=== PATIENT | male | born 1955 | race Two or more races ===

== ENCOUNTER → 2022-05-27 | Outpatient (CLI) | payer OTHER, MEDICAID ==
[2022-05-27 08:43] LABS: Hemoglobin 9.3 g/dL (13.5-17.5)
[2022-05-27 08:45] LABS: Hematocrit 30.1 % (41.0-53.0); Mean Corpuscular Hemoglobin 21.8 pg (28.0-32.0); Mean Corpuscular Hgb Conc. 30.9 g/dL (32.0-36.0); Mean Corpuscular Volume 70.6 fL (80.0-100.0); Red Blood Cells 4.26 10^6/uL (4.5-5.90); White Blood Cell 9.6 10^3/uL (4.4-10.8)
[2022-05-27 08:48] LABS: Red Cell Distribution Width 20.9 % (11.8-14.3)
[2022-05-27 08:50] LABS: Band Neutrophils % (manual) 0; Basophils % (manual) 0 (0.0-2.0); Blast Cells 0; Metamyelocytes % 0; Myelocytes % 0; Promyelocytes % 0; Reactive Lymphocytes 0
[2022-05-27 08:56] LABS: Urine Bacteria FEW /hpf (None Seen); Urine Blood Negative /uL (Negative); Urine Specific Gravity 1.014 (1.001-1.035); Urine WBC 65 /hpf (0 - 3); Urine WBC Clumps PRESENT /hpf (None Seen)
[2022-05-27 09:02] LABS: Calcium 9.1 mg/dL (8.5-10.1); Potassium 4.8 mmol/L (3.5-5.1)
[2022-05-27 09:09] LABS: BUN/Creatinine Ratio 29.4 (10.0-20.0); Bilirubin, Total 0.5 mg/dL (0.2-1.0); Total Protein 8.4 g/dL (6.4-8.2)
[2022-05-27 09:33] LABS: Eosinophils % (manual) 15 (0-7); Lymphocytes % (manual) 13 (10.0-50.0); Monocytes % (manual) 5 (0-12)
[2022-05-27 10:24] LABS: Micro Albumin 15.3 mg/L (0-30.0)
== END | disposition home or self-care (01) ==
LOC: LAB 07:44
PROVIDERS: ATTEND Internal Medicine
DX: I12.9 Hypertensive chronic kidney disease with stage 1 through stage 4 chronic kidney disease, or unspecified chronic kidney disease (principal); E11.22 Type 2 diabetes mellitus with diabetic chronic kidney disease; N18.2 Chronic kidney disease, stage 2 (mild)
CPT/HCPCS: 36415; 80053; 80061; 81001; 82043; 82570; 83036; 84439; 84443; 85007; 85027

== ENCOUNTER → 2022-07-02 | Outpatient (CLI) | payer OTHER, MEDICAID | END | disposition home or self-care (01) | LOC: LAB 08:04 | PROVIDERS: ATTEND Internal Medicine | DX: D50.9 Iron deficiency anemia, unspecified (principal) | CPT/HCPCS: 82728; 83540 ==

== ENCOUNTER → 2022-11-18 | Outpatient (CLI) | payer MEDICARE, MEDICAID | END | disposition home or self-care (01) | LOC: LAB 08:56 | PROVIDERS: ATTEND Urology | DX: N40.1 Benign prostatic hyperplasia with lower urinary tract symptoms (principal) | CPT/HCPCS: 84153 ==

== ENCOUNTER → 2022-12-15 | Outpatient (CLI) | payer MEDICARE, MEDICAID ==
[2022-12-15 15:48] LABS: White Blood Cell 9.5 10^3/uL (4.4-10.8)
[2022-12-15 15:50] LABS: Hematocrit 30.9 % (41.0-53.0); Hemoglobin 9.8 g/dL (13.5-17.5); Mean Corpuscular Hemoglobin 23.7 pg (28.0-32.0); Mean Corpuscular Hgb Conc. 31.6 g/dL (32.0-36.0); Red Blood Cells 4.11 10^6/uL (4.5-5.90)
[2022-12-15 15:51] LABS: Red Cell Distribution Width 20.3 % (11.8-14.3)
[2022-12-15 15:52] LABS: Band Neutrophils % (manual) 0; Basophils % (manual) 0 (0.0-2.0); Blast Cells 0; Metamyelocytes % 0; Myelocytes % 0; Promyelocytes % 0; Reactive Lymphocytes 0
[2022-12-15 16:16] LABS: Chloride 110 mmol/L (98-107); Potassium 4.6 mmol/L (3.5-5.1); Sodium 143 mmol/L (136-145)
[2022-12-15 16:17] LABS: Anion Gap 8 (5-15); Carbon Dioxide 25 mmol/L (20-30)
[2022-12-15 16:18] LABS: Calcium 9.3 mg/dL (8.7-10.4)
[2022-12-15 16:22] LABS: BUN/Creatinine Ratio 22.7 (10.0-20.0); Blood Urea Nitrogen 27 mg/dL (9-23); Glucose 114 mg/dL (74-106)
[2022-12-15 17:07] LABS: Anisocytosis Slight; Eosinophils % (manual) 14 (0-7); Hypochromia Moderate; Lymphocytes % (manual) 20 (10.0-50.0); Monocytes % (manual) 9 (0-12); Platelet Estimate Adequate
== END | disposition home or self-care (01) ==
LOC: LAB 15:34
PROVIDERS: ATTEND Internal Medicine
DX: Z12.5 Encounter for screening for malignant neoplasm of prostate (principal); I12.9 Hypertensive chronic kidney disease with stage 1 through stage 4 chronic kidney disease, or unspecified chronic kidney disease; E11.22 Type 2 diabetes mellitus with diabetic chronic kidney disease; N18.2 Chronic kidney disease, stage 2 (mild); D50.9 Iron deficiency anemia, unspecified
CPT/HCPCS: 36415; 80048; 84153; 85007; 85027; G0103

== ENCOUNTER → 2023-01-03 | Outpatient (CLI) | payer MEDICARE, MEDICAID | END | disposition home or self-care (01) | LOC: LAB 10:37 | PROVIDERS: ATTEND Urology | DX: N40.0 Benign prostatic hyperplasia without lower urinary tract symptoms (principal); R35.1 Nocturia; R31.9 Hematuria, unspecified | CPT/HCPCS: 84153 ==

== ENCOUNTER → 2023-02-02 | Outpatient (CLI) | payer MEDICARE, MEDICAID ==
[~2023-02-02] MED LIST: AMLO1TAB22 PO; CARV3.1240 PO; ENAL1TAB48 PO; LIDOCAINE VISCOUS 2% 15ML UD ONE; METF-370 PO; METH5TAB2 PO; OMEP20TA PO
[2023-02-02 15:21] LABS: Albumin 4.2 g/dL (3.2-4.8); Bilirubin, Direct 0.2 mg/dL (<0.3); Bilirubin, Total 0.4 mg/dL (0.2-1.0); Total Protein 8.2 g/dL (5.7-8.2)
== END | disposition home or self-care (01) ==
LOC: LAB 14:13
PROVIDERS: ATTEND Urology
DX: N28.89 Other specified disorders of kidney and ureter (principal)
CPT/HCPCS: 36415; 80076; 82565; 84520

== ENCOUNTER → 2023-02-03 | Day surgery (SDC) | payer MEDICARE, MEDICAID ==
[2023-02-02 14:50] LABS: Basophils # (auto) 0.1 10 ^3/uL (0-0.2); Nucleated Red Blood Cells % 0.1 %; Urine Bacteria NONE SEEN /hpf (None Seen); Urine Blood 2+ /uL (Negative); Urine Clarity Clear (Clear); Urine Color Colorless (Yellow); Urine Protein, UAD Negative (Negative); Urine Specific Gravity 1.014 (1.001-1.035); Urine Urobilinogen Normal (Negative); Urine WBC 14 /hpf (0 - 3); Urine pH 5.5 (5.0-8.0)
[2023-02-02 14:52] LABS: Basophils % (auto) 1.5 % (0.0-2.0); Eosinophils # (auto) 1.2 10 ^3/uL (0-0.8); Eosinophils % (auto) 11.8 % (0.0-7.0); Hematocrit 34.3 % (41.0-53.0); Lymphocytes # (auto) 1.9 10 ^3/uL (0.4-5.4); Lymphocytes % (auto) 18.9 % (10.0-50.0); Mean Corpuscular Hemoglobin 25.6 pg (28.0-32.0); Mean Corpuscular Hgb Conc. 32.1 g/dL (32.0-36.0); Mean Corpuscular Volume 79.8 fL (80.0-100.0); Monocytes # (auto) 0.7 10 ^3/uL (0-1.3); Monocytes % (auto) 7.5 % (0.0-12.0); Neutrophils # (auto) 5.9 10 ^3/uL (1.6-8.6); Neutrophils % (auto) 60.3 % (37.0-80.0); White Blood Cell 9.8 10^3/uL (4.4-10.8)
[2023-02-02 14:56] LABS: Red Cell Distribution Width 21.6 % (11.8-14.3)
[2023-02-02 15:04] LABS: INR 1.09 (0.9-1.15); Partial Thromboplastin Time 31.3 SEC (24.5-34.5); Prothrombin Time 11.4 sec (9.3-11.8)
[2023-02-02 15:22] LABS: Alanine Aminotransferase 20 U/L (7-40); Albumin 4.2 g/dL (3.2-4.8); Alkaline Phosphatase 172 U/L (46-116); Anion Gap 8 (5-15); Aspartate Aminotransferase 18 U/L (13-40); Bilirubin, Total 0.4 mg/dL (0.2-1.0); Blood Urea Nitrogen 27 mg/dL (9-23); Calcium 9.7 mg/dL (8.5-10.1); Carbon Dioxide 24 mmol/L (20-30); Chloride 109 mmol/L (98-107); Glucose 88 mg/dL (74-106); Potassium 4.7 mmol/L (3.5-5.1); Sodium 141 mmol/L (136-145); Total Protein 8.2 g/dL (5.7-8.2)
[~2023-02-03] VITALS: Ht 175.3 cm; Wt 127.0 kg
[~2023-02-03] MED LIST changes: +HYDROmorphone HCL 2 MG/ML VL/or syr IV PRN; -LIDOCAINE VISCOUS 2% 15ML UD ONE; +METOCLOPRAMIDE HCL 5MG/ml INJ 2ml VIAL IV PRN; +MIDAZOLAM HCL 2MG/2ML 2ml VIAL (1mg/ml) ONE; +MORPHINE SULFATE INJ 2 MG/ml SYRG IV PRN; +ONDANSETRON HCL 4 MG/2 ML VIAL ONE; +PROPOFOL 10 MG/ML 20 ML IV ONE; +fentaNYL CITRATE 100 MCG/2 ML VL ONE
[2023-02-03 14:24] VITALS: PULSE 72; RESP 14; TEMP 97.8; O2SAT 97
[2023-02-03 15:00] VITALS: BP 109/66; PULSE 77; RESP 15; O2SAT 99
== END | disposition home or self-care (01) ==
LOC: GI 09:41
PROVIDERS: ATTEND Internal Medicine Gastroenterology
DX: K92.1 Melena (principal); Q43.8 Other specified congenital malformations of intestine; K31.7 Polyp of stomach and duodenum; K29.50 Unspecified chronic gastritis without bleeding; K74.60 Unspecified cirrhosis of liver; E11.9 Type 2 diabetes mellitus without complications; I10 Essential (primary) hypertension; Z79.899 Other long term (current) drug therapy; Z98.890 Other specified postprocedural states; Z79.84 Long term (current) use of oral hypoglycemic drugs
CPT/HCPCS: 36415; 43239; 45378; 80053; 81001; 82962; 85025; 85610; 85730; J2250; J2405; J2704; J3010; J7030

== ENCOUNTER 2023-04-24 21:18 | Inpatient (IN) | payer MEDICARE, MEDICAID ==
[~2023-04-24] VITALS: Ht 175.3 cm; Wt 136.6 kg
[~2023-04-24 21:18] MED LIST changes: -HYDROmorphone HCL 2 MG/ML VL/or syr IV PRN; -METOCLOPRAMIDE HCL 5MG/ml INJ 2ml VIAL IV PRN; -MIDAZOLAM HCL 2MG/2ML 2ml VIAL (1mg/ml) ONE; -MORPHINE SULFATE INJ 2 MG/ml SYRG IV PRN; -ONDANSETRON HCL 4 MG/2 ML VIAL ONE; -PROPOFOL 10 MG/ML 20 ML IV ONE; -fentaNYL CITRATE 100 MCG/2 ML VL ONE
[2023-04-24 23:11] LABS: Basophils # (auto) 0.1 10 ^3/uL (0-0.2); Basophils % (auto) 0.7 % (0.0-2.0); Eosinophils # (auto) 0.3 10 ^3/uL (0-0.8); Eosinophils % (auto) 2.2 % (0.0-7.0); Hemoglobin 11.3 g/dL (13.5-17.5); Lymphocytes # (auto) 0.9 10 ^3/uL (0.4-5.4); Mean Corpuscular Hemoglobin 25.5 pg (28.0-32.0); Mean Corpuscular Hgb Conc. 30.5 g/dL (32.0-36.0); Mean Corpuscular Volume 83.7 fL (80.0-100.0); Monocytes # (auto) 0.8 10 ^3/uL (0-1.3); Monocytes % (auto) 6.5 % (0.0-12.0); Neutrophils # (auto) 10.3 10 ^3/uL (1.6-8.6); Neutrophils % (auto) 83.6 % (37.0-80.0); Nucleated Red Blood Cells % 0.1 %; Red Blood Cells 4.42 10^6/uL (4.5-5.90); Red Cell Distribution Width 16.5 % (11.8-14.3); White Blood Cell 12.3 10^3/uL (4.4-10.8)
[2023-04-24 23:17] LABS: Chloride 110 mmol/L (98-107); Potassium 4.7 mmol/L (3.5-5.1); Sodium 139 mmol/L (136-145)
[2023-04-24 23:18] LABS: Anion Gap 10 (5-15); Carbon Dioxide 19 mmol/L (20-30)
[2023-04-24 23:23] LABS: BUN/Creatinine Ratio 14.8 (10.0-20.0); Blood Urea Nitrogen 21 mg/dL (9-23); Glucose 159 mg/dL (74-106)
[2023-04-25 00:33] LABS: Urine Bacteria FEW /hpf (None Seen); Urine Blood 2+ /uL (Negative); Urine Clarity HAZY (Clear); Urine Color Yellow (Yellow); Urine Protein, UAD TRACE (Negative); Urine Specific Gravity 1.015 (1.001-1.035); Urine Urobilinogen Normal (Negative); Urine WBC 354 /hpf (0 - 3); Urine pH 6.5 (5.0-8.0)
[2023-04-25] MEDS: MORPHINE SULFATE 4 MG/ML SYR/VIAL IM ONE (01:17)
[2023-04-25] MEDS: ONDANSETRON ODT 4 MG TAB PO ONE (01:17)
[2023-04-25 02:20] VITALS: PULSE 98; RESP 16; O2SAT 95
[2023-04-25] MEDS: cefTRIAXone SOD 1,000 MG VL IM ONE (02:43)
[2023-04-25] MEDS: LIDOCAINE 1% HCL (LOCAL ANESTH.) INJ 20ML MDV ONE (02:43)
[2023-04-25] MEDS: CIPROFLOXACIN 400MG/200ML 200 ML IV ONE (03:10)
[2023-04-25] MEDS ORDERED: HYDROcodone-ACET 5/325MG TAB PO PRN (05:30)
[2023-04-25] MEDS ORDERED: TEMAZEPAM 15 MG CAP PO PRN ×2 (05:30→05:45)
[2023-04-25] MEDS ORDERED: DEXTROSE (50%) 50ML SYRG IV PRN ×2 (05:30→05:45)
[2023-04-25] MEDS ORDERED: ACETAMINOPHEN 325 MG TAB PO PRN ×2 (05:30→05:45)
[2023-04-25] MEDS ORDERED: ONDANSETRON HCL 4 MG/2 ML VIAL IV PRN ×2 (05:30→05:45)
[2023-04-25] MEDS ORDERED: ACCU-CHEK COMFORT CURVE STRIP VI SCH (07:00)
[2023-04-25] MEDS ORDERED: InsuLIN REG 1unit/0.01ml Soln (100units/ml) SC SCH (07:00)
[2023-04-25] MEDS: ACCU-CHEK COMFORT CURVE STRIP VI SCH (07:25)
[2023-04-25] MEDS: InsuLIN REG 1unit/0.01ml Soln (100units/ml) SC SCH (07:26)
[2023-04-25 07:36] VITALS: PULSE 102; RESP 16; O2SAT 92
[2023-04-25] MEDS: TAMSULOSIN HYDROCHLORIDE 0.4 MG CAP PO ONE (09:08)
[2023-04-25] MEDS: amLODIPine BESYLATE 5 MG TAB PO SCH (09:54)
[2023-04-25] MEDS: ENALAPRIL MALEATE 10 MG TAB PO SCH (09:54)
[2023-04-25] MEDS: CARVEDILOL 3.125 MG TAB PO SCH (09:55)
[2023-04-25] MEDS ORDERED: ENALAPRIL MALEATE 10 MG TAB PO SCH (10:00)
[2023-04-25] MEDS ORDERED: amLODIPine BESYLATE 5 MG TAB PO SCH (10:00)
[2023-04-25] MEDS ORDERED: CARVEDILOL 3.125 MG TAB PO SCH (10:00)
[2023-04-25] MEDS: HYDROcodone-ACET 5/325MG TAB PO PRN (10:55)
[2023-04-25 13:30] LABS: Hepatitis B Surface Antigen Negative (Negative)
[2023-04-25 13:50] LABS: Hepatitis A Ab IgM Negative
[2023-04-25 13:51] LABS: Hepatitis B Core IgM Negative
[2023-04-25 14:00] LABS: Hepatitis C Antibody Positive (Negative)
[2023-04-25] MEDS: SODIUM CHLORIDE 0.9% 1,000 ML IV SCH (15:47)
[2023-04-25 19:00] VITALS: RESP 16; O2SAT 92
[2023-04-25 19:45] VITALS: PULSE 78; RESP 18; O2SAT 93
[2023-04-25] MEDS: TAMSULOSIN HYDROCHLORIDE 0.4 MG CAP PO SCH (20:52)
[2023-04-26] VITALS (7 sets, daily range): BP systolic 99–142; BP diastolic 39–73; PULSE 68–79; RESP 18–20; TEMP 97.9–99.4; O2SAT 92–100
[2023-04-26] MEDS: cefTRIAXone 1GM/50ML D5W 50 ML IV SCH (01:36)
[2023-04-26] MEDS ORDERED: cefTRIAXone 1GM/50ML D5W 50 ML IV SCH (02:00)
[2023-04-26] MEDS ORDERED: METH10T PO (02:55)
[2023-04-26 06:36] LABS: INR 1.19 (0.9-1.15); Partial Thromboplastin Time 33.8 SEC (24.5-34.5); Prothrombin Time 12.4 sec (9.3-11.8)
[2023-04-26 06:49] LABS: Basophils # (auto) 0.1 10 ^3/uL (0-0.2); Eosinophils # (auto) 0.4 10 ^3/uL (0-0.8)
[2023-04-26 06:51] LABS: Eosinophils % (auto) 2.5 % (0.0-7.0); Hematocrit 32.2 % (41.0-53.0); Hemoglobin 10.2 g/dL (13.5-17.5); Lymphocytes # (auto) 1.5 10 ^3/uL (0.4-5.4); Lymphocytes % (auto) 10.1 % (10.0-50.0); Mean Corpuscular Hemoglobin 25.8 pg (28.0-32.0); Mean Corpuscular Hgb Conc. 31.5 g/dL (32.0-36.0); Monocytes # (auto) 1.4 10 ^3/uL (0-1.3); Monocytes % (auto) 9.4 % (0.0-12.0); Neutrophils # (auto) 11.6 10 ^3/uL (1.6-8.6); Nucleated Red Blood Cells % 0.1 %; Red Blood Cells 3.93 10^6/uL (4.5-5.90); Red Cell Distribution Width 16.2 % (11.8-14.3); White Blood Cell 15.1 10^3/uL (4.4-10.8)
[2023-04-26 06:54] LABS: Alanine Aminotransferase 14 U/L (7-40); Albumin 3.7 g/dL (3.2-4.8); Alkaline Phosphatase 125 U/L (46-116); Anion Gap 8 (5-15); Aspartate Aminotransferase 22 U/L (13-40); BUN/Creatinine Ratio 23.6 (10.0-20.0); Bilirubin, Total 0.5 mg/dL (0.2-1.0); Calcium 8.8 mg/dL (8.5-10.1); Carbon Dioxide 24 mmol/L (20-30); Chloride 109 mmol/L (98-107); Glucose 110 mg/dL (74-106); Potassium 4.1 mmol/L (3.5-5.1); Sodium 141 mmol/L (136-145); Total Protein 7.3 g/dL (5.7-8.2)
[2023-04-26 06:57] LABS: Blood Urea Nitrogen 38 mg/dL (9-23)
[2023-04-26 08:06] LABS: PSA Free 0.08 ng/mL; Prostate Specific Antigen 0.5 ng/mL (0.0-4.0)
[2023-04-26] MEDS ORDERED: amLODIPine BESYLATE 5 MG TAB PO SCH (10:00)
[2023-04-27 05:00] VITALS: BP 123/72; PULSE 80; RESP 19; TEMP 98.3; O2SAT 92
[2023-04-27 06:09] LABS: Basophils # (auto) 0.1 10 ^3/uL (0-0.2); Hemoglobin 9.5 g/dL (13.5-17.5); Lymphocytes # (auto) 1.5 10 ^3/uL (0.4-5.4); Monocytes # (auto) 1.1 10 ^3/uL (0-1.3); Neutrophils # (auto) 5.9 10 ^3/uL (1.6-8.6); Red Cell Distribution Width 16.2 % (11.8-14.3)
[2023-04-27 06:10] LABS: Basophils % (auto) 1.3 % (0.0-2.0); Eosinophils # (auto) 1.2 10 ^3/uL (0-0.8); Eosinophils % (auto) 11.9 % (0.0-7.0); Hematocrit 30.7 % (41.0-53.0); Lymphocytes % (auto) 14.9 % (10.0-50.0); Mean Corpuscular Hemoglobin 25.7 pg (28.0-32.0); Mean Corpuscular Hgb Conc. 31.1 g/dL (32.0-36.0); Mean Corpuscular Volume 82.5 fL (80.0-100.0); Neutrophils % (auto) 60.9 % (37.0-80.0); Red Blood Cells 3.72 10^6/uL (4.5-5.90); White Blood Cell 9.8 10^3/uL (4.4-10.8)
[2023-04-27 06:12] LABS: Chloride 108 mmol/L (98-107); Potassium 4.1 mmol/L (3.5-5.1); Sodium 138 mmol/L (136-145)
[2023-04-27 06:13] LABS: Anion Gap 7 (5-15); Calcium 8.6 mg/dL (8.5-10.1); Carbon Dioxide 23 mmol/L (20-30)
[2023-04-27 06:18] LABS: Blood Urea Nitrogen 33 mg/dL (9-23); Glucose 90 mg/dL (74-106)
[2023-04-27 07:00] LABS: BUN/Creatinine Ratio 24.3 (10.0-20.0)
[2023-04-27 09:11] VITALS: BP 135/75; PULSE 72; RESP 20; TEMP 97.9; O2SAT 91
[2023-04-27 12:35] VITALS: BP 128/59; PULSE 69; RESP 20; TEMP 98.2; O2SAT 91
[2023-04-27] MEDS: LIDOCAINE W/ EPINEPHRINE 1% 20ML VIAL ONE (14:37)
[2023-04-27] MEDS: NEOMYCIN-BACITRACIN-POLYM 15GM TOP OINT TOP ONE (14:37)
[2023-04-27] MEDS: BACITRACIN TOP OINT 1 UD PKG TOP ONE (14:37)
[2023-04-27] MEDS: SUCCINYLCHOLINE CHLORIDE 20 MG/ML 10ML VIAL IV ONE (15:09)
[2023-04-27] MEDS ORDERED: LIDOCAINE 2% JELLY 11ml (GLYDO) ONE (15:14)
[2023-04-27] MEDS ORDERED: fentaNYL CITRATE 100 MCG/2 ML VL ONE (15:26)
[2023-04-27] MEDS ORDERED: MIDAZOLAM HCL 2MG/2ML 2ml VIAL (1mg/ml) ONE (15:26)
[2023-04-27] MEDS ORDERED: ONDANSETRON HCL 4 MG/2 ML VIAL IV PRN (16:15)
[2023-04-27] MEDS ORDERED: HYDROmorphone HCL 2 MG/ML VL/or syr IV PRN (16:15)
[2023-04-27] MEDS ORDERED: PROPOFOL 10 MG/ML 20 ML IV ONE (16:25)
[2023-04-27] MEDS ORDERED: ONDANSETRON HCL 4 MG/2 ML VIAL ONE (16:29)
[2023-04-27] MEDS ORDERED: LIDOCAINE 2% (LOCAL ANESTH.) PF 5ml SDV ONE (16:30)
[2023-04-27] MEDS ORDERED: ROCURONIUM 10MG/ML 10ML VIAL IV ONE (16:31)
[2023-04-27] MEDS ORDERED: NEOSTIGMINE 1 MG/ML INJ (10mg/10ML VIAL) ONE (16:33)
[2023-04-27] MEDS ORDERED: GLYCOPYRROLATE 0.2 MG/ML 1ML VIAL ONE (16:33)
[2023-04-27 16:45] VITALS: PULSE 87; RESP 18
[2023-04-27 17:50] VITALS: BP 152/89; PULSE 79; RESP 18; TEMP 97.8; O2SAT 92
[2023-04-27 22:00] VITALS: BP 122/72; PULSE 88; RESP 18; TEMP 97.9; O2SAT 95
[2023-04-28 05:00] VITALS: BP_SYST 114; BP_SYST 136; BP_DIAS 70; BP_DIAS 79; PULSE 67; PULSE 86; RESP 18; RESP 21; TEMP 97.8; TEMP 98; O2SAT 90; O2SAT 97
[2023-04-28 06:35] LABS: Chloride 107 mmol/L (98-107); Potassium 4.3 mmol/L (3.5-5.1); Sodium 139 mmol/L (136-145)
[2023-04-28 06:36] LABS: Anion Gap 9 (5-15); Carbon Dioxide 23 mmol/L (20-30)
[2023-04-28 06:37] LABS: Calcium 8.6 mg/dL (8.5-10.1)
[2023-04-28 06:40] LABS: Basophils # (auto) 0.1 10 ^3/uL (0-0.2); Hemoglobin 9.6 g/dL (13.5-17.5); Neutrophils # (auto) 4.8 10 ^3/uL (1.6-8.6)
[2023-04-28 06:41] LABS: Glucose 85 mg/dL (74-106)
[2023-04-28 06:42] LABS: BUN/Creatinine Ratio 21.2 (10.0-20.0); Blood Urea Nitrogen 24 mg/dL (9-23)
[2023-04-28 06:47] LABS: Eosinophils % (auto) 12.5 % (0.0-7.0); Hematocrit 30.5 % (41.0-53.0); Lymphocytes # (auto) 1.2 10 ^3/uL (0.4-5.4); Lymphocytes % (auto) 15.2 % (10.0-50.0); Mean Corpuscular Hemoglobin 25.6 pg (28.0-32.0); Mean Corpuscular Hgb Conc. 31.6 g/dL (32.0-36.0); Monocytes % (auto) 12.3 % (0.0-12.0); Nucleated Red Blood Cells % 0.1 %; Red Blood Cells 3.77 10^6/uL (4.5-5.90); Red Cell Distribution Width 16.4 % (11.8-14.3); White Blood Cell 8.1 10^3/uL (4.4-10.8)
[2023-04-28 08:00] VITALS: BP 108/58; PULSE 72; RESP 22; TEMP 98.4; O2SAT 94
[2023-04-28 12:37] VITALS: BP 93/47; PULSE 77; RESP 20; TEMP 98.6; O2SAT 90
[2023-04-28] MEDS ORDERED: CEFD300C2 PO (13:19)
[2023-04-28 14:56] VITALS: BP 108/58; PULSE 72; RESP 22; TEMP 98.4; O2SAT 94
[2023-04-28 17:00] VITALS: BP 118/58; PULSE 69; RESP 20; TEMP 98.2; O2SAT 96
== END 2023-04-28 16:32 | disposition home or self-care (01) | DRG 871 ==
LOC: ER 21:18 → EDBD 21:18 → WEST WING 04-25 05:28 → ER 04-25 05:28 → OVERFLOW 04-25 05:28 → WEST WING 04-25 22:59
PROVIDERS: ADMIT Nurse Practitioner; ATTEND Internal Medicine
PROC: 0TJB8ZZ Inspection of Bladder, Via Natural or Artificial Opening Endoscopic (ICD-10-PCS; 2023-04-27)
PROC: 0VTTXZZ Resection of Prepuce, External Approach (ICD-10-PCS; principal; 2023-04-27 15:22)
DX: A41.9 Sepsis, unspecified organism (principal); N17.0 Acute kidney failure with tubular necrosis; N39.0 Urinary tract infection, site not specified; Z68.41 Body mass index [BMI] 40.0-44.9, adult; R32 Unspecified urinary incontinence; N47.1 Phimosis; E66.01 Morbid (severe) obesity due to excess calories; N28.89 Other specified disorders of kidney and ureter; I10 Essential (primary) hypertension; E11.9 Type 2 diabetes mellitus without complications; K42.9 Umbilical hernia without obstruction or gangrene; K74.60 Unspecified cirrhosis of liver; B19.20 Unspecified viral hepatitis C without hepatic coma; R31.29 Other microscopic hematuria; Z79.84 Long term (current) use of oral hypoglycemic drugs; Z79.899 Other long term (current) drug therapy; Z90.5 Acquired absence of kidney
CPT/HCPCS: 36415; 51702; 71045; 76775; 80048; 80053; 80074; 81001; 82962; 83036; 83880; 84154; 85025; 85610; 85730; 86850; 86900; 86901; 87086; 93005; 93306; 96365; 96372; G0378; J0330; J0696; J1815; J2001; J2250; J2405; J2704; Q0162

== ENCOUNTER 2024-11-09 11:22 | Inpatient (IN) | payer MEDICARE, MEDICAID ==
[~2024-11-09] VITALS: Ht 175.3 cm; Wt 113.5 kg
[~2024-11-09 11:22] MED LIST changes: +CEFD300C2 PO; +METH-1214 PO; -METH5TAB2 PO
--- NOTE | 2024-11-09 12:08 | ED.PDOC ---
History of Present Illness HPI Comments 69-year-old male presents to the ER in a wheelchair being pushed by family member and with prior medical history of CHF, renal cell carcinoma in the chief complaint of lower extremity swelling. The the PCP informed them to go to the ER due from the patient having bilateral lower extremity swelling which has been on and off for one week. Denies chills, fever, N/V/D, SOB, CP. No other associated symptoms, modifiers, recent injuries or sick contacts present at this time. Chief Complaint: Lower Extremity Time Seen by MD: 12:00 Reviewed Notes: Nurses Notes, Medications, Allergies Allergies: Coded Allergies: NO KNOWN ALLERGIES (Unverified , 02/02/23) Home Meds Active Scripts Cefdinir (Cefdinir) 300 Mg Cap, 1 CAP PO BID for 7 Days, #14 CAP Prov:SERGO ACUNA MD 04/28/23 Reported Medications Methadone Hcl (METHADONE HCL TABLET) 10 Mg Tb, 50 MG PO DAILY, TAB 04/26/23 Carvedilol (Carvedilol) 3.125 Mg Tab, 3.125 MG PO BID, TAB 02/02/23 Enalapril Maleate (Enalapril Maleate) 20 Mg Tab, 20 MG PO DAILY, TAB 02/02/23 Amlodipine Besylate (Amlodipine Besylate) 5 Mg Tab, 5 MG PO DAILY, TAB 02/02/23 Omeprazole (Gnp Omeprazole) 20 Mg Tab, 40 MG PO DAILY, TAB 02/02/23 Metformin Hydrochloride (Metformin Hcl) 500 Mg Tab, 500 MG PO BID, TAB 02/02/23 Information Source: Patient, Relative Mode of Arrival: Ambulatory Severity: Moderate Timing: Days Duration: Since onset, Days Prehospital treatment: None Past Medical History PAST MEDICAL HISTORY: CHF Past Medical History (Other): Renal cell carcinoma Surgical History: Denies all surgeries Family History Family History: Reviewed,noncontributory to illness, Unknown Social History Smoker: Non-Smoker Alcohol: Denies ETOH Use Drugs: Denies Drug Use Lives In: Home Constitutional: denies: chills, diaphoresis, fatigue, fever, malaise, sweats, weakness, others EENTM: denies: blurred vision, double vision, ear bleeding, ear discharge, ear drainage, ear pain, ear ringing, eye pain, eye redness, hearing loss, mouth pain, mouth swelling, nasal discharge, nose bleeding, nose congestion, nose pain, photophobia, tearing, throat pain, throat swelling, voice changes, others Respiratory: denies: cough, hemoptysis, orthopnea, SOB at rest, shortness of breath, SOB with excertion, stridor, wheezing, others Cardiovascular: reports: edema (Bilateral lower extremity swelling); denies: chest pain, dizzy spells, diaphoresis, Dyspnea on exertion, irregular heart beat, left arm pain, lightheadedness, palpitations, PND, syncope, others Gastrointestinal: denies: abdomen distended, abdominal pain, blood streaked bowels, constipated, diarrhea, dysphagia, difficulty swallowing, hematemesis, melena, nausea, poor appetite, poor fluid intake, rectal bleeding, rectal pain, vomiting, others Genitourinary: denies: burning, dysuria, flank pain, frequency, hematuria, incontinence, penile discharge, penile sore, pain, testicle pain, testicle swelling, urgency, others Neurological: denies: dizziness, fainting, headache, left sided numbness, left sided weakness, numbness, paresthesia, pre-existing deficit, right sided numbness, right sided weakness, seizure, speech problems, tingling, tremors, weakness, others Musculoskeletal: denies: back pain, gout, joint pain, joint swelling, muscle pain, muscle stiffness, neck pain, others Integumetry: denies: bruises, change in color, change in hair/nails, dryness, laceration, lesions, lumps, rash, wounds, others Allergic/Immunocompromised: denies: Difficulty Healing, Frequent Infections, Hives, Itching, others Hematologic/Lymphatic: denies: anemia, blood clots, easy bleeding, easy bruising, swollen glands, others Endocrine: denies: excessive hunger, excessive sweating, excessive thirst, excessive urination, flushing, intolerance to cold, intolerance to heat, unexplained weight gain, unexplained weight loss, others Psychiatric: denies: anxiety, bipolar disorder, depression, hopeless, panic d isorder, schizophrenia, sleepless, suicidal, others All Other Systems: Reviewed and Negative Physical Exam Exam Comments Patient appears uncomfortable General Appearance: No Apparent Distress, Normal HEENT: Normal ENT Inspection, Pharynx Normal, TMs Normal Neck: Full Range of Motion, Non-Tender, Normal, Normal Inspection Respiratory: Chest Non-Tender, Lungs Clear, No Accessory Muscle Use, No Respiratory Distress, Normal Breath Sounds Cardiovascular: No Edema, No JVD, No Murmur, No Gallop, Normal Peripheral Pulses, Regular Rate/Rhythm Breast Exam: Deferred Gastrointestinal: No Organomegaly, Non Tender, No Pulsatile Mass, Normal Bowel Sounds, Soft Genitalia: Deferred Pelvic: Deferred Rectal: Deferred Extremities: No calf tenderness, Normal capillary refill, Normal inspection, Normal range of motion, Non-tender, No pedal edema Musculoskeletal : Apperance: Normal Neurologic: Alert, disease control inspector II-XII nml as Tested, No Motor Deficits, Normal Affect, Normal Mood, No Sensory Deficits Cerebellar Function: Normal Reflexes: Normal Skin: Dry, Normal Color, Warm Lymphatic: No Adenopathy Was a procedure done? Was a procedure done?: No Differential Dx Considerations may include: ACS, CVA, CHF, viral syndrome X-Ray, Labs, Meds, VS Vital Signs Date Time Temp Pulse Resp B/P (MAP) Pulse Ox O2 Delivery O2 Flow Rate FiO2 11/09/24 11:24 98.2 89 18 149/75 100 98.2 Lab Test 11/09/24 15:29 11/09/24 13:32 11/09/24 12:34 Range/Units Troponin I High Sensitivity 3 L 3 L < 3 L </=54 ng/L White Blood Count 8.4 4.4-10.8 10^3/uL Red Blood Count 3.96 L 4.5-5.90 10^6/uL Hemoglobin 10.5 L 13.5-17.5 g/dL Hematocrit 33.7 L 41.0-53.0 % Mean Corpuscular Volume 85.1 80.0-100.0 fL Mean Corpuscular Hemoglobin 26.6 L 28.0-32.0 pg Mean Corpuscular Hemoglobin Concent 31.3 L 32.0-36.0 g/dL Red Cell Distribution Width 18.5 H 11.8-14.3 % Platelet Count 261 140-450 10^3/uL Mean Platelet Volume 8.6 6.9-10.8 fL Neutrophils (%) (Auto) 65.4 37.0-80.0 % Lymphocytes (%) (Auto) 14.1 10.0-50.0 % Monocytes (%) (Auto) 9.1 0.0-12.0 % Eosinophils (%) (Auto) 10.4 H 0.0-7.0 % Basophils (%) (Auto) 1.0 0.0-2.0 % Neutrophils # (Auto) 5.5 1.6-8.6 10 ^3/uL Lymphocytes # (Auto) 1.2 0.4-5.4 10 ^3/uL Monocytes # (Auto) 0.8 0-1.3 10 ^3/uL Eosinophils # (Auto) 0.9 H 0-0.8 10 ^3/uL Basophils # (Auto) 0.1 0-0.2 10 ^3/uL Nucleated Red Blood Cells 0.1 % Sodium Level 143 136-145 mmol/L Potassium Level 5.1 3.5-5.1 mmol/L Chloride Level 113 H 98-107 mmol/L Carbon Dioxide Level 21 20-31 mmol/L Anion Gap 9 5-15 Blood Urea Nitrogen 26 H 9-23 mg/dL Creatinine 1.25 0.700-1.30 mg/dL Glomerular Filtration Rate Calc 63 >90 mL/min BUN/Creatinine Ratio 20.8 H 10.0-20.0 Serum Glucose 134 H 74-106 mg/dL Calcium Level 8.8 8.7-10.4 mg/dL B-Type Natriuretic Peptide 35.15 0-100 pg/mL Time of 1ST Reevaluation: 12:30 Reevaluation 1ST: Unchanged Patient Education/Counseling: Diagnosis, Treatment, Prognosis Family Education/Counseling: Diagnosis, Treatment, Prognosis SEPSIS Sepsis Screen Date sepsis recognized/suspect: Nov 09, 2024 Time Sepsis recognized/suspect: 1126 Recent Procedure: No On Antibiotic Therapy: No Respiratory Rate >20: No Heart Rate >90: No Temp<36 C (96.8 F) or >38.3 C: No SBP <90 or MAP <65 mmHG: No New Acute Mental Status Change: No Is the patient on CPAP, BIPAP,: No Physician Orders Chest Portable (11/09/24 12:18) Electrocardigram (11/09/24 12:18) Electrocardigram (11/09/24 13:18) Electrocardigram (11/09/24 15:18) Vital Signs Date Time Temp Pulse Resp B/P (MAP) Pulse Ox O2 Delivery O2 Flow Rate FiO2 11/09/24 11:24 98.2 89 18 149/75 100 98.2 Laboratory Tests Test 11/09/24 12:34 White Blood Count 8.4 10^3/uL (4.4-10.8) Departure 1 Departure Time of Disposition: 16:36 (Patient presented with shortness of breath that was concerning for possible STEMI, ACS, PE, Pneumonia, Muscle Strain, COPD, Dissection, Acute on Chronic systolic and Diastolic dysfunction. Data: 1. I ordered and reviewed the result of at least 3 labs including a CBC, BMP, and Troponin. 2. I independently interpreted the following tests: EKG which shows sinus arrhthmia and Chest X-ray which shows cardiomegaly.Risk:This patient has a high risk of morbidity due to further diagnostic testing or treatment and may suffer from an acute cardiac or respiratory disorder but is most consitent with an acute chf exacerbation. Patient should be admitted for further workup and possible expert consultation. ) Impression: Primary Impression: Acute on chronic systolic heart failure Additional Impression: Lower extremity edema Disposition: ADMITTED INPATIENT Admit to: Med Surg Condition: Serious Critical Care Note Critical Care Time?: Yes Critical care comment: Concern for heart failure Authorized and Performed by: Ha Sanchez MD Total critical care time: Approximately 38 minutes Due to a high probability of clinically significant, life threatening deterioration, the patient required my highest level of preparedness to intervene emergently and I personally spent this critical care time directly and personally managing the patient. This critical care time included obtaining a history; examining the patient; pulse oximetry; ordering and review of studies; arranging urgent treatment with development of a management plan; evaluation of patient's response to treatment; frequent reassessment; and, discussions with other providers. This critical care time was performed to assess and manage the high probability of imminent, life-threatening deterioration that could result in multi-organ failure. It was exclusive of separately billable procedures and treating other patients and teaching time. Please see my other sections and the rest of the note for further information on patient assessment and treatment. Stability Stability form required: No I personally scribed for HA SANCHEZ MD ([email or web address]) on 11/09/24 at 12:08. El ectronically submitted by Bharathi Calle ([email or web address]). HA SANCHEZ MD Nov 09, 2024 12:08
--- NOTE | 2024-11-09 12:48 | DVH ---
XY CHEST PORTABLE, HISTORY: leg swelling COMPARISON: XY CHEST PORTABLE on DOS: 04/27/23, XY CHEST TWO VIEWS ROUTINE on DOS: 02/02/23 XY CHEST PORTABLE on DOS: 04/27/23, XY CHEST TWO VIEWS ROUTINE on DOS: 02/02/23 TECHNICAL DATA: 1 view of the chest was obtained. FINDINGS: Lines and tubes: None Cardiomediastinal silhouette: prominent Pulmonary vasculature: prominent Lung expansion: normal Lung airspace: Left basilar subsegmental atelectasis. Lung interstitium: normal Pleura: normal Pneumothorax: no Bones: Unremarkable Other: no IMPRESSION: Left basilar subsegmental atelectasis. Cardiomegaly with pulmonary vascular congestion.
[2024-11-09 12:53] LABS: Nucleated Red Blood Cells % 0.1 %
[2024-11-09 12:55] LABS: Hematocrit 33.7 % (41.0-53.0); Hemoglobin 10.5 g/dL (13.5-17.5); Mean Corpuscular Hemoglobin 26.6 pg (28.0-32.0); Mean Corpuscular Volume 85.1 fL (80.0-100.0)
[2024-11-09 13:01] LABS: Potassium 5.1 mmol/L (3.5-5.1); Sodium 143 mmol/L (136-145)
[2024-11-09 13:02] LABS: Anion Gap 9 (5-15); Calcium 8.8 mg/dL (8.7-10.4); Carbon Dioxide 21 mmol/L (20-31)
[2024-11-09 13:04] LABS: Chloride 113 mmol/L (98-107)
[2024-11-09 13:07] LABS: BUN/Creatinine Ratio 20.8 (10.0-20.0); Blood Urea Nitrogen 26 mg/dL (9-23); Glucose 134 mg/dL (74-106)
[2024-11-09] MEDS: FUROSEMIDE 40 MG/4 ML VIAL IV ONE (17:28)
[2024-11-09 17:29] VITALS: PULSE 67; RESP 18; O2SAT 97
[2024-11-09] MEDS ORDERED: MORPHINE SULFATE INJ 2 MG/ml SYRG IV PRN (22:45)
[2024-11-09] MEDS ORDERED: ACETAMINOPHEN 325 MG TAB PO PRN (22:45)
[2024-11-09] MEDS ORDERED: DOCUSATE SOD 100 MG CAP PO PRN (22:45)
[2024-11-09] MEDS ORDERED: ONDANSETRON HCL 4 MG/2 ML VIAL IV PRN (22:45)
[2024-11-09] MEDS ORDERED: NITROGLYCERIN 0.4 MG SL TAB SL PRN (22:45)
[2024-11-10] VITALS (8 sets, daily range): BP systolic 114–147; BP diastolic 69–88; PULSE 57–75; RESP 16–19; TEMP 97.4–98.7; O2SAT 95–97
[2024-11-10 07:59] LABS: Hematocrit 33.0 % (41.0-53.0); Hemoglobin 10.8 g/dL (13.5-17.5); Mean Corpuscular Hemoglobin 26.8 pg (28.0-32.0); Mean Corpuscular Volume 82.2 fL (80.0-100.0); Nucleated Red Blood Cells % 0.2 %
[2024-11-10 08:15] LABS: Alanine Aminotransferase 20 U/L (7-40); Albumin 4.1 g/dL (3.2-4.8); Anion Gap 10 (5-15); BUN/Creatinine Ratio 20.1 (10.0-20.0); Bilirubin, Total 0.3 mg/dL (0.2-1.0); Calcium 9.1 mg/dL (8.7-10.4); Carbon Dioxide 21 mmol/L (20-31); Potassium 5.0 mmol/L (3.5-5.1); Sodium 143 mmol/L (136-145)
[2024-11-10 08:17] LABS: Alkaline Phosphatase 199 U/L (46-116); Blood Urea Nitrogen 28 mg/dL (9-23); Chloride 112 mmol/L (98-107); Glucose 129 mg/dL (74-106); Total Protein 8.4 g/dL (5.7-8.2)
[2024-11-10] MEDS: FUROSEMIDE 40 MG/4 ML VIAL IV SCH (09:53)
--- NOTE | 2024-11-10 11:01 | DVHHPRES ---
History of Present Illness Resident Creating Document: RICK FRY History of Present Illness History of Present Illness (HPI): Jimbo Barakat Jr. is a 69-year-old male with a complex past medical history including congestive heart failure (CHF), renal cell carcinoma, type 2 diabetes mellitus, hypertension, and bilateral knee osteoarthritis, who presented to the emergency department in a wheelchair, accompanied by a family member, with the chief complaint of bilateral lower extremity swelling. The patient reported that the swelling had been intermittent over the past week and was significant enough that his primary care provider advised him to seek emergency care. He stated that the swelling worsens during the day and improves somewhat with elevation of the legs at night. He also reported associated shortness of breath, particularly noticeable during ambulation, although he denied experiencing shortness of breath at rest. The patient denied any other symptoms including chills, fever, nausea, vomiting, diarrhea, chest pain, or recent injuries. He also denied any sick contacts or recent illnesses. Past Medical History (PMH): Essential hypertension, chronic anemia normocytic. Renal cell cancer, HFpEF, moderate pulmonary hypertension, morbid obesity diabetes mellitus, hepatitis-C liver cirrhosis supraumbilical hernia, allergic rhinitis, atopy, Seasonal allergy. Past Surgical History (PSH): Hernia surgery 5 years ago, Phimosis, status post circumcision. Family history (FH): Diabetes mellitus in mother, Reviewed, noncontributory to illness, Unknown Social History: Non-smoker, denies alcohol use, denies drug use, lives at home. history of heavy alcohol abuse Stopped 2 years ago, Smoking /Vapin Pack years Recreational Drugs: Admits to heroin use in the past, stopped 30 years ago. Lives at home with daughter. PCP: Dr. Ennis Review of Systems Review of Systems CONSTITUTIONAL: Fever, night sweats, weight loss, Lymphadenopathy, ecchymoses, fatigue: Negative DERMATOLOGIC: Rash, New/growing/changing skin lesions: Negative HEENT: Vision change, eye pain, Rhinorrhea, sinus pain, epistaxis, dysphagia, odynophagia, globus sensation, Change in hearing, tinnitus, vertigo, otalgia, Dental problems, oral ulcers or lesions: : Negative ENDOCRINE: Weight change, heat or cold intolerance, tremor, insomnia, neck pain or swelling, Polyuria, polydipsia, polyphagia, Abnormal hair growth, change in nails: Negative CARDIOVASCULAR: Complains of bilateral pedal edema. Chest pain, palpitations, syncope, cyanosis, claudication, Orthopnea, paroxysmal nocturnal dyspnea: Negative PULMONARY: Shortness of breath, dyspnea with exertion, Cough, hemoptysis, wheezing, chest pain : Negative GI: Nausea, vomiting, diarrhea, melena, hematochezia, Change in appetite, abdominal pain, change in bowel habits or stools: Negative : Dysuria, frequency, urgency, Urinary incontinence, hematuria, foamy urine, nocturia, Change in libido, erectile dysfunction, Change in menses, dysmenorrhea, dyspaerunia, pelvic pain: : Negative MUSCULOSKELETAL: Joint swelling or pain, muscle pain, back pain: : Negative NEUROLOGIC: Headache, scotoma, Change in smell or taste, change in facial muscles, Muscle weakness, paresthesias, anesthesia, Ataxia, change in speech: Negative PSYCHIATRIC: Depression, anxiety, hallucinations, keanu, suicidal/homicidal t houghts, Binging, purging: Negative Allergies: Coded Allergies: NO KNOWN ALLERGIES (Unverified , 02/02/23) Medications Current Medications Medications Dose Ordered Sig/Nieves Route Start Time Stop Time Status Last Admin Dose Admin Acetaminophen 650 mg Q4HP PRN PO 11/09/24 22:45 Ondansetron HCl 4 mg Q4HP PRN IV 11/09/24 22:45 Docusate Sodium 100 mg BIDPRN PRN PO 11/09/24 22:45 Nitroglycerin 0.4 mg Q5MINP PRN SL 11/09/24 22:45 Morphine Sulfate 2 mg Q30M PRN IV 11/09/24 22:45 Exam Vital Signs Vital Signs Date Time Temp Pulse Resp B/P (MAP) Pulse Ox O2 Delivery O2 Flow Rate FiO2 11/09/24 21:51 98.8 80 20 134/68 (90) 95 98.8 11/09/24 18:39 Room Air* 0 21 Exam General Appearance: Alert, Oriented X3, Cooperative, No acute distress HEENT: Atraumatic, PERRLA, EOMI, Mucous membrane moist/pink Respiratory: Clear to auscultation, Normal air movement Cardiovascular: Regular rate, Normal S1, Normal S2, No murmurs, no chest wall tenderness Abdominal: Normal bowel sounds, Soft, No tenderness, No hepatospenomegaly, No masses Extremities: Bilateral nonpitting pedal edema, No clubbing, No cyanosis, Normal pulses, No tenderness/swelling Skin: No rashes, No breakdown, No significant lesion Neuro: Normal gait, Normal speech, Strength at 5/5 X4 ext, Normal tone, Sensation intact, Cranial nerves 3-12 NL, Reflexes 2+ Psych/Mental Status: Mental status NL, Mood NL Labs/Xrays Labs Test 11/09/24 15:29 11/09/24 12:34 Range/Units Troponin I High Sensitivity 3 L </=54 ng/L White Blood Count 8.4 4.4-10.8 10^3/uL Red Blood Count 3.96 L 4.5-5.90 10^6/uL Hemoglobin 10.5 L 13.5-17.5 g/dL Hematocrit 33.7 L 41.0-53.0 % Mean Corpuscular Volume 85.1 80.0-100.0 fL Mean Corpuscular Hemoglobin 26.6 L 28.0-32.0 pg Mean Corpuscular Hemoglobin Concent 31.3 L 32.0-36.0 g/dL Red Cell Distribution Width 18.5 H 11.8-14.3 % Platelet Count 261 140-450 10^3/uL Mean Platelet Volume 8.6 6.9-10.8 fL Neutrophils (%) (Auto) 65.4 37.0-80.0 % Lymphocytes (%) (Auto) 14.1 10.0-50.0 % Monocytes (%) (Auto) 9.1 0.0-12.0 % Eosinophils (%) (Auto) 10.4 H 0.0-7.0 % Basophils (%) (Auto) 1.0 0.0-2.0 % Neutrophils # (Auto) 5.5 1.6-8.6 10 ^3/uL Lymphocytes # (Auto) 1.2 0.4-5.4 10 ^3/uL Monocytes # (Auto) 0.8 0-1.3 10 ^3/uL Eosinophils # (Auto) 0.9 H 0-0.8 10 ^3/uL Basophils # (Auto) 0.1 0-0.2 10 ^3/uL Nucleated Red Blood Cells 0.1 % Sodium Level 143 136-145 mmol/L Potassium Level 5.1 3.5-5.1 mmol/L Chloride Level 113 H 98-107 mmol/L Carbon Dioxide Level 21 20-31 mmol/L Anion Gap 9 5-15 Blood Urea Nitrogen 26 H 9-23 mg/dL Creatinine 1.25 0.700-1.30 mg/dL Glomerular Filtration Rate Calc 63 >90 mL/min BUN/Creatinine Ratio 20.8 H 10.0-20.0 Serum Glucose 134 H 74-106 mg/dL Calcium Level 8.8 8.7-10.4 mg/dL B-Type Natriuretic Peptide 35.15 0-100 pg/mL SEPSIS Sepsis Screen Date sepsis recognized/suspect: Nov 09, 2024 Time Sepsis recognized/suspect: 1838 Recent Procedure: No On Antibiotic Therapy: No Respiratory Rate >20: No Heart Rate >90: No Temp<36 C (96.8 F) or >38.3 C: No SBP <90 or MAP <65 mmHG: No New Acute Mental Status Change: No Is the patient on CPAP, BIPAP,: No Physician Orders Admit (11/09/24 22:45) Allergies (11/09/24 22:45) Code Status (11/09/24 22:45) Acetaminophen Tablet (Tylenol Tablet) (11/09/24 22:45) Ondansetron Hcl (Zofran) (11/09/24 22:45) Docusate Sodium Capsule (Colace Capsule) (11/09/24 22:45) Fall Risk Precautions In Place QSHIFT (11/09/24 22:45) Complete Blood Count (11/10/24 04:00) Comprehensive Metabolic Panel (11/10/24 04:00) Cardiac Diet-2gna,Lofat,Lochol (11/10/24 Breakfast) Condition: Fair (11/09/24 22:45) Bedside Commode (11/09/24 22:45) Nitroglycerin Sublingual (Ntrostat Subli (11/09/24 22:45) Morphine Sulfate Injection (11/09/24 22:45) Stat Ekg For Chest Pain (11/09/24 22:45) Vital Signs Date Time Temp Pulse Resp B/P (MAP) Pulse Ox O2 Delivery O2 Flow Rate FiO2 11/09/24 21:51 98.8 80 20 134/68 (90) 95 98.8 Medications Medications Dose Ordered Sig/Nieves Route Start Time Stop Time Status Last Admin Dose Admin Furosemide 40 mg ONCE ONCE IV 11/09/24 16:00 11/09/24 16:09 DC 11/09/24 17:28 40 MG Assessment/Plan Assessment/Plan #bilateral leg swelling: Concerning for DVT, CHF, worsening of liver cirrhosis, venous insufficiency, myxedema, injury, cellulitis, extensive workup continue with U/S DVT, echo, BNP, CMP, INR/PT, TSH, and associated additional workup. #bilateral leg swelling secondary due to amlodipine/CCB: Is a diagnostic of exclusion once all above or negative. Compression DAV hose, change to different as of antihypertensive. #uncontrolled Essential HTN : Target blood pressure 140/90, close monitoring, salt restricted cardiac diet to continue, restart home medications. home medications include amlodipine, enalapril. Holding enalapril for now. #normocytic anemia, possible early iron deficiency anemia: occult blood, iron panel, ferritin, transfusion threshold no rashes noted no rales no other concerning features. #likely underlying CKD, baseline creatinine 1.2-1.3 #Left basilar subsegmental atelectasis: Cardiomegaly with pulmonary vascular congestion. Q 1 hour of incentive spirometry, out of bed, otherwise CXR normal, patient breathing in the room air. #Known prior heart failure with preserved ejection fraction: Last echo . Check for electrolytes, echo, EKG. #Moderate pulmonary hypertension: Previously noted in echo, repeat. #Previous history of renal cell carcinoma: Check renal ultrasound. #grade 2 obesity BMI of 37 #Prior diabetes mellitus: Check for HbA1c, not on insulin, target blood glucose in-hospital 140-180 #history of hepatitis-C last checked done 04/25/2023: Recheck hepatitis panel #Liver cirrhosis: Likely due to above, check for PT INR/ CMP close follow up. Check for hepatitis panel comprehensive. No active decompensation noted. #Supraumbilical hernia: Check for lactate ruled out incarceration. Status post Previous surgery. #Surgical history of Phimosis, status post circumcision. #Prior renal cell carcinoma: Follow up needed, collateral history, further follow up to check. #Prior history of malignancy, comes with higher total protein: Check for SPEP, if needed later at [facility] #Moderate dehydration: Intravascular fluid depletion: Noted by clinical examination, elevated BUN with BUN to creatinine ratio more than 20.IV fluid to continue, #Allergic rhinitis: Fluticasone propionate nasal: Eosinophilia likely due to the seasonal allergy. #History of recurrent UTI, prior microbiology unremarkable for resistant bacteria: Urinalysis to check #History of Osteoarthritis of bilateral knee: Likely age-related, stable, independent ADLs PUD prophylaxis: not needed DVT prophylaxis: brisk movement. Barriers to discharge: Medical diagnosis and management in progress. Patient toy otto with family. Independent for ADL. Likely discharge 24-48 hours. PCP:Dr. Ennis Case discussed with Dr. Rebollar. Code Status: Full Code. Complex patient care needed 33 minutes. Plan discussed with: Patient, Son My Orders Orders - RICK FRY RESIDENT Procedure Category Date Status Time Admit ADMIT 11/09/24 Transmitted 22:45 Allergies KRISTINA 11/09/24 In Process 22:45 Code Status CODE 11/09/24 Transmitted 22:45 Acetaminophen Tablet PHA 11/09/24 In Process (Tylenol Tablet) 22:45 Ondansetron Hcl PHA 11/09/24 In Process (Zofran) 22:45 Docusate Sodium PHA 11/09/24 In Process Capsule (Colace 22:45 Fall Risk Precautions KRISTINA 11/09/[address] 22:45 Complete Blood Count LAB 11/10/24 Logged 04:00 Comprehensive LAB 11/10/24 Logged Metabolic Panel 04:00 Cardiac DIET 11/10/24 Transmitted Diet-2gna,Lofat,Lochol Breakfast Condition: Fair KRISTINA 11/09/24 In Process 22:45 Bedside Commode KRISTINA 11/09/24 In Process 22:45 Nitroglycerin PHA 11/09/24 In Process Sublingual (Ntrostat 22:45 Morphine Sulfate PHA 11/09/24 In Process Injection 22:45 Stat Ekg For Chest KRISTINA 11/09/24 In Process Pain 22:45 Date of Service: Nov 09, 2024 Billing Provider: MOISES REBOLLAR MD Common Visit Codes: 61600-AKYTSYK INP/OBS CARE (HIGH) Secondary Visit Codes: 69602-YNYAQEXG CARE PLAN 30 MINUTES RICK FRY RESIDENT Nov 10, 2024 02:47 IESHA LAGUNA RESIDENT Nov 10, 2024 11:01
[2024-11-10] MEDS: LACTATED RINGER'S 500 ML IV ONE (11:19)
[2024-11-10] MEDS: LACTATED RINGER'S 1,000 ML IV SCH (11:20)
[2024-11-10] MEDS: LORATADINE 10 MG TAB PO ONE (11:24)
[2024-11-10 11:28] LABS: Iron 52.0 ug/dL (65-175)
[2024-11-10 11:31] LABS: Total Iron Binding Capacity 343.0 ug/dL (250-425)
[2024-11-10 12:11] LABS: INR 1.14 (0.9-1.15); Partial Thromboplastin Time 31.0 SEC (24.5-34.5); Prothrombin Time 11.9 sec (9.3-11.8)
--- NOTE | 2024-11-10 12:27 | DVH ---
Bilateral lower extremity venous duplex Clinical History: VTE rule out Comparison: None Technique: Duplex Doppler evaluation of the deep venous systems of both lower extremities from the common femora l veins to the popliteal veins including color Doppler and spectral/pulsed waveform analysis was perf ormed. Findings: RIGHT SIDE: The common femoral vein demonstrates appropriate compressibility and waveform variability. There is compressibility/patency of the great saphenous vein at the proximal thigh. The femoral vein demonstrates appropriate compressibility and waveform variability. The deep femoral vein demonstrates appropriate compressibility and waveform variability. The popliteal vein demonstrates appropriate compressibility and waveform variability. There is normal compressibility at the tibioperoneal trunk. LEFT SIDE: The common femoral vein demonstrates appropriate compressibility and waveform variability. There is compressibility/patency of the great saphenous vein at the proximal thigh. The femoral vein demonstrates appropriate compressibility and waveform variability. The deep femoral vein demonstrates appropriate compressibility and waveform variability. The popliteal vein demonstrates appropriate compressibility and waveform variability. There is normal compressibility at the tibioperoneal trunk. Impression: 1. No right or left femoropopliteal venous thrombosis.
--- NOTE | 2024-11-10 12:33 | DVH ---
INDICATION: Please check renal, ureter and bladder ultrasound. TECHNIQUE: Multiple real-time sonographic images of the kidneys and bladder were obtained. COMPARISON: US KIDNEY on DOS: 04/25/23 FINDINGS: RIGHT KIDNEY: Measures 14.4 cm. Increased echogenicity. No mass. No urinary stones. No hydronephrosis . Multiple cysts largest measuring up to 1.7 cm. LEFT KIDNEY: Measures 13.1 cm. Increased echogenicity. No mass. No urinary stones. No hydronephrosi s. Multiple cysts largest measuring up to 8.8 cm BLADDER: distended. IMPRESSION: 1. Echogenic kidneys suggestive of medical renal parenchymal disease. Multiple cysts within bilateral kidneys as above measuring up to 8.8 cm within the left. 2. No hydronephrosis. 3. Distended bladder.
--- NOTE | 2024-11-10 19:36 | DVHPN2 ---
Assessment/Plan Assessment/Plan Subjective 69 yo M with renal cell carcinoma, morbid obesity, chronic normocytic anemia, heart failure with preserved ejection fraction, liver cirrhosis with hepatitis C, and bilateral knee osteoarthritis presents with bilateral lower extremity swelling. The swelling has been intermittent and present for about a week, worsening during the day and improving at night with elevation. The patient reports some shortness of breath during exertion but denies any other symptoms. He was sent to the hospital by his primary care physician, Dr. Rodrigues, due to this condition. The patient mentions a history of sleep apnea but has never obtained or used CPAP for treatment. He denies any abdominal pain, or problems with urination or defecation. Prior to admission, the patient was evaluated in the emergency department where he received two doses of Lasix 40 mg and 500 cc of intravenous fluids. The patient is currently able to lie flat without experiencing shortness of breath. Medications and Supplements - Lasix 40 mg Social History - Substance Use: History of sleep apnea diagnosis, but patient never obtained CPAP device Review of Systems - General: Denies fever, chills, fatigue - Cardiovascular: Bilateral lower extremity swelling, denies chest pain - Respiratory: Shortness of breath during exertion, denies shortness of breath at rest - Gastrointestinal: Denies abdominal pain - Genitourinary: Denies difficulty urinating Objective Vital Signs BP 149/75 HR 89 RR 18 SPO2 100% Physical Examination Patient able to lay flat without shortness of breath Small hernia noted Clear breath sounds Unable to hear heart sounds clearly No JVD observed Abdomen soft Bilateral lower extremity swelling observed Laboratory, Imaging, and Diagnostic Test Results Hemoglobin 10.5 Chloride 113 Bicarbonate 21 Creatinine 1.25 BNP 35 Troponin Negative Chest X-ray Shows bipulmonary vascular congestion Ultrasound Multiple cysts on bilateral kidneys, no hydronephrosis, relatively pr eserved ejection fraction Assessment & Plan Bilateral Lower Extremity Edema Heart Failure? unlikely Obstructive Sleep Apnea Discontinue intravenous fluids Implement strict input and output monitoring Continue inpatient monitoring and reassessment If clinical status remains stable, plan for discharge tomorrow Arrange follow-up with vascular surgeon Await official echocardiogram report Continue current heart failure management Monitor for any signs of decompensation Educate patient on importance of CPAP therapy Recommend follow-up with primary care physician diet cardiac dvt ppx lovenox full code Plan discussed with: Patient Date of Service: Nov 10, 2024 Billing Provider: ROMÁN ERAZO MD Common Visit Codes: [id number] INP/OBS CARE(HIGH) ROMÁN ERAZO MD Nov 10, 2024 19:36
[2024-11-10 21:06] LABS: Urine Protein, UAD Negative (Negative)
[2024-11-10 21:15] LABS: Amphetamine Screen, Urine Neg (NEGATIVE); Barbiturate Scree,Urine Neg (NEGATIVE); Benzodiazephine Screen, Urine Neg (NEGATIVE); Cannabinoid Screen, Urine Neg (NEGATIVE); Cocaine Screen, Urine Neg (NEGATIVE); Opiate Scree,Urine Neg (NEGATIVE); Phencyclidine Screen, Urine Neg (NEGATIVE)
[2024-11-10] MEDS: FLUTICASONE PROP NASAL SPR 0.05 % (50MCG) 16GM EACHNOSTRI SCH (23:38)
[2024-11-11 01:00] VITALS: BP 125/64; PULSE 58; RESP 17; TEMP 97.5; O2SAT 97
[2024-11-11 05:00] VITALS: BP 123/63; PULSE 59; RESP 17; TEMP 97.5; O2SAT 96
[2024-11-11 09:30] VITALS: BP 129/81; PULSE 67; RESP 16; TEMP 98.3; O2SAT 93
[2024-11-11] MEDS: LORATADINE 10 MG TAB PO SCH (10:21)
[2024-11-11 10:59] VITALS: BP 127/73; TEMP 36.8
--- NOTE | 2024-11-11 14:12 | DVHDS2 ---
Discharge Summary Date of Admission Nov 09, 2024 at 22:45 Date of Discharge: Nov 11, 2024 Labs/Diagnostic Data: Laboratory Results Test 11/10/24 20:43 11/10/24 11:37 11/10/24 06:40 11/10/24 06:12 Urine Color Light-yellow (Yellow) Urine Clarity Clear (Clear) Urine pH 5.0 (5.0-9.0) Urine Specific [place] 1.011 (1.001-1.035) Urine Protein Negative (Negative) Urine Ketones Negative (Negative) Urine Blood Negative /uL (Negative) Urine Nitrite Negative (Negative) Urine Bilirubin Negative (Negative) Urine Urobilinogen Normal mg/dL (Negative) Urine Leukocyte Esterase 1+ /uL (Negative) Urine RBC <1 /hpf (0 - 3) Urine Microscopic WBC 1 /HPF (0-3) Urine Squamous Epithelial Cells None seen /hpf (<5) Urine Bacteria Few /hpf (None Seen) Urine Glucose Normal mg/dL (Normal) Urine Opiates Screen Neg (NEGATIVE) Urine Fentanyl Screen Neg (NEGATIVE) Urine Barbiturates Screen Neg (NEGATIVE) Urine Phencyclidine Screen Neg (NEGATIVE) Urine Amphetamines Screen Neg (NEGATIVE) Urine Benzodiazepines Screen Neg (NEGATIVE) Urine Cocaine Screen Neg (NEGATIVE) Urine Cannabinoids Screen Neg (NEGATIVE) Prothrombin Time 11.9 sec (9.3-11.8) Prothrombin Time INR 1.14 (0.9-1.15) Activated Partial Thromboplast Time 31.0 SEC (24.5-34.5) D-Dimer, Quantitative 1.29 mg/L FEU (0.0-0.49) Lactic Acid Level 1.0 mmol/L (0.4-2.0) B-Type Natriuretic Peptide 12.89 pg/mL (0-100) Stool Occult Blood Sample #3 Negative (Negative) White Blood Count 8.1 10^3/uL (4.4-10.8) Red Blood Count 4.02 10^6/uL (4.5-5.90) Hemoglobin 10.8 g/dL (13.5-17.5) Hematocrit 33.0 % (41.0-53.0) Mean Corpuscular Volume 82.2 fL (80.0-100.0) Mean Corpuscular Hemoglobin 26.8 pg (28.0-32.0) Mean Corpuscular Hemoglobin Concent 32.6 g/dL (32.0-36.0) Red Cell Distribution Width 18.1 % (11.8-14.3) Platelet Count 269 10^3/uL (140-450) Mean Platelet Volume 9.1 fL (6.9-10.8) Neutrophils (%) (Auto) 64.0 % (37.0-80.0) Lymphocytes (%) (Auto) 15.2 % (10.0-50.0) Monocytes (%) (Auto) 8.7 % (0.0-12.0) Eosinophils (%) (Auto) 11.0 % (0.0-7.0) Basophils (%) (Auto) 1.1 % (0.0-2.0) Neutrophils # (Auto) 5.2 10 ^3/uL (1.6-8.6) Lymphocytes # (Auto) 1.2 10 ^3/uL (0.4-5.4) Monocytes # (Auto) 0.7 10 ^3/uL (0-1.3) Eosinophils # (Auto) 0.9 10 ^3/uL (0-0.8) Basophils # (Auto) 0.1 10 ^3/uL (0-0.2) Nucleated Red Blood Cells 0.2 % Sodium Level 143 mmol/L (136-145) Potassium Level 5.0 mmol/L (3.5-5.1) Chloride Level 112 mmol/L (98-107) Carbon Dioxide Level 21 mmol/L (20-31) Anion Gap 10 (5-15) Blood Urea Nitrogen 28 mg/dL (9-23) Creatinine 1.39 mg/dL (0.700-1.30) Glomerular Filtration Rate Calc 56 mL/min (>90) BUN/Creatinine Ratio 20.1 (10.0-20.0) Serum Glucose 129 mg/dL (74-106) Calcium Level 9.1 mg/dL (8.7-10.4) Magnesium Level 1.7 mg/dL (1.6-2.6) Iron Level 52 ug/dL (65-175) Total Iron Binding Capacity 343 ug/dL (250-425) Percent Iron Saturation 15.2 % (20-55) Ferritin 33.2 ng/mL (22-322) Total Bilirubin 0.3 mg/dL (0.2-1.0) Aspartate Amino Transferase (AST) 25 U/L (13-40) Alanine Aminotransferase (ALT) 20 U/L (7-40) Alkaline Phosphatase 199 U/L (46-116) Thyroid Stimulating Hormone (TSH) 1.98 uIU/mL (0.55-4.78) Test 11/09/24 15:29 Troponin I High Sensitivity 3 ng/L (</=54) Other Laboratory Tests 11/10/24 06:12 Brief Hx & Hospital Course: Jimbo Barakat, a 69-year-old male with renal cell carcinoma, morbid obesity, chronic anemia, heart failure, liver cirrhosis with hepatitis C, and knee osteoarthritis, presented with bilateral lower extremity swelling for one week. He reported exertional dyspnea but denied other symptoms. Examination revealed bilateral lower extremity edema, clear breath sounds, and chest X-ray showed bipulmonary vascular congestion. Treatment included discontinuation of IV fluids, Lasix 40mg, strict I/O monitoring, and plans for vascular surgery follow-up. The patient was educated on CPAP importance for his untreated sleep apnea. stable to dc. lasix stopped. elevate feet at home. compression stockings Condition at Discharge: Good Final Diagnosis/Problems List likely venous insufficiency unlikely HF obesity MICHAELLE Discharge Disposition: Home Discharge Instruct/Medications Diet: Consistent carbohydrate, Cardiac 2g Na,low cholest Activity: No Restrictions, As Tolerated Follow Up/Referral: pcp vascular Scheduled Amlodipine Besylate (Amlodipine Besylate), 5 MG PO DAILY, (Reported) Enalapril Maleate (Enalapril Maleate), 20 MG PO DAILY, (Reported) Metformin Hydrochloride (Metformin Hcl), 500 MG PO BID, (Reported) Methadone Hcl (Methadone Hcl Tablet), 50 MG PO DAILY, (Reported) Omeprazole (Gnp Omeprazole), 40 MG PO DAILY, (Reported) Discharge Statement: "Patient was advised to return to the ER or call 911 if any headaches, dizziness, shortness of breath, chest pain, abdominal pain, bleeding, fevers, or worsening of medical condition. Patient was counseled about treatment plan, medications, possible side effects, patientverbalized understanding. All questions were answered to the best of my ability. This discharge took greater then 30 minutes in planning, reviewing documentation, counseling the patient, and discussing with other team members." ASSESSMENT ASSESSMENT Assessment likely venous insufficiency Date of Service: Nov 11, 2024 Billing Provider: ROMÁN ERAZO MD Common Visit Codes: 35807-RIM/OBS DISCH DAY >30min ROMÁN ERAZO MD Nov 11, 2024 14:12
--- NOTE | 2024-11-11 17:54 | DVHSR ---
APPROVED REPORT EXAM: Two-dimensional and M-mode echocardiogram with Doppler and color Doppler. Blood Pressure: 120/70 mmHg INDICATION Rule out structural heart disease RISK FACTORS Obesity: Height: 5'9", Weight: 300 DIMENSIONS LVDd4.8 (3.8-5.7cm)LA (2D)5.2 (1.9-4.0cm)Aortic Root3.8 (2.0-3.7cm) LVDs3.4 (2.5-4.0cm)LA (MM) (1.9-4.0cm)Aortic Cusp Exc2.3 (1.5-2.0cm) EF (%) 60.0 (55-70%)Rt. Atrium5.1 (1.9-4.0cm)Asc. Aorta cm IVSd1.2 (0.7-1.1cm)RV (D) (1.8-2.4cm) PWd1.1 (0.7-1.1cm) Mitral Valve MitralMitral Stenosis E wave0.52m/sMV Mean GR.mmHg A wave0.71m/sMV Peak GR.mmHg E/A ratio0.72D MVAcm2 DECEL [id number] 1/2 Timems Aortic Valve Aortic ValveAortic Stenosis V11.08m/Jun Mean GR.5mmHg V21.53m/Jun Peak GR.9mmHg LVOT Diameter2.3 (1.8-2.4cm)Doppler AVA2.93cm2 Pulmonic Valve V21.17m/s Other Information Quality : LimitedRhythm : Technically limited study due to body habitus. Conclusion MODERATE DEGREE LVH AND MODERATE DEGREE LV DIASTOLIC DYSFUNCTION LV EF IS 65% AND IS NORMAL MODERATELY DILATED LEFT ATRIUM DUE TO HYPERTENSIVE CV DISEASE NORMAL VALVES NO EFFUSION
[2024-11-12 13:05] LABS: Hepatitis A Total Antibody Positive (Negative); Hepatitis B Surface Antigen Negative (Negative); Hepatitis C Antibody Positive (Negative)
== END 2024-11-11 14:00 | disposition home or self-care (01) | DRG 291 ==
LOC: ER 11:22 → OVERFLOW 22:45 → CENTRAL 23:59
PROVIDERS: ATTEND Emergency Medicine
DX: I11.0 Hypertensive heart disease with heart failure (principal); I50.33 Acute on chronic diastolic (congestive) heart failure; J98.11 Atelectasis; J96.11 Chronic respiratory failure with hypoxia; I87.2 Venous insufficiency (chronic) (peripheral); K74.60 Unspecified cirrhosis of liver; D64.9 Anemia, unspecified; E66.01 Morbid (severe) obesity due to excess calories; K42.9 Umbilical hernia without obstruction or gangrene; G47.33 Obstructive sleep apnea (adult) (pediatric); J30.9 Allergic rhinitis, unspecified; I27.20 Pulmonary hypertension, unspecified; E86.0 Dehydration; Z79.84 Long term (current) use of oral hypoglycemic drugs; Z79.899 Other long term (current) drug therapy; Z68.37 Body mass index [BMI] 37.0-37.9, adult; Z85.528 Personal history of other malignant neoplasm of kidney
CPT/HCPCS: 36415; 71045; 76775; 80048; 80053; 80307; 81001; 82270; 82728; 83540; 83550; 83605; 83735; 83880; 84155; 84165; 84443; 84484; 85025; 85379; 85610; 85730; 86704; 86706; 86708; 86803; 87040; 87340; 93306; 93970; 96374; 99291; G0378